=== PATIENT | male | born 1995 | race Caucasian/White ===

== ENCOUNTER 2018-12-01 16:58 | Emergency (ER) | payer BC ==
--- NOTE | 2018-12-01 17:15 | EDM.PDOC ---
ED HPI GENERAL MEDICAL PROBLEM - General Chief Complaint: Lower Extremity Injury/Pain Stated Complaint: LT FOOT INJURY Time Seen by Provider: 12/01/18 17:02 Source of Information: Reports: Patient History Limitations: Reports: No Limitations - History of Present Illness INITIAL COMMENTS - FREE TEXT/NARRATIVE: HISTORY AND PHYSICAL: History of present illness: Patient is a 22-year-old male who presents to the emergency room with complaints of left heel pain that started this morning. States he woke up with pain to his heel and difficulty flexing his toe upward to "flatten" his foot. He denies any difficulty ambulating or weightbearing, although does feel pain to the calcaneus region. He denies any injury, trauma or falls. No previous surgeries or injuries of the affected extremity. Patient denies any fever, chills, headache, change in vision, syncope or near syncope. Denies any chest pain, back pain, shortness of breath or cough. Denies any GI or symptoms. Patient has been eating and drinking appropriately. Review of systems: As per history of present illness and below otherwise all systems reviewed and negative. Past medical history: As per history of present illness and as reviewed below otherwise noncontributory. Surgical history: As per history of present illness and as reviewed below otherwise noncontributory. Social history: See social history for further information Family history: As per history of present illness and as reviewed below otherwise noncontributory. Physical exam: General: Well-developed and well-nourished 22-year-old male. Alert and oriented. Nontoxic appearing and in no acute distress. HEENT: Atraumatic, normocephalic, pupils equal and reactive bilaterally, negative for conjunctival pallor or scleral icterus, mucous membranes moist, trachea midline. No drooling or trismus noted. No meningeal signs. No hot potato voice noted. Lungs: Clear to auscultation, breath sounds equal bilaterally. Heart: S1S2, regular rate and rhythm without overt murmur Abdomen: Soft, nondistended, nontender. Skin: Intact, warm, dry. No lesions or rashes noted. Extremities: Atraumatic, moves all extremities per self without difficulty or deficits, negative for cords or calf pain. Appears to have no achilles tendon involvement. Able to point and flex the affected foot. Mild pain when palpating the left calcaneus. Strong pedal and pretibial pulse. Capillary refill less than 3 seconds. Neurovascular unremarkable. Neuro: Awake, alert, oriented. Cranial nerves II through XII unremarkable. Cerebellum unremarkable. Motor and sensory unremarkable throughout. Exam nonfocal. Notes: Patient's blood pressure is elevated will here. He declines the need for further evaluation of this. We discussed the need to follow-up with his primary care provider for reevaluation and further management. Discussed with patient the need to follow up with podiatry. He declines any crutches or cam walker shoe for comfort. Supportive care measures were reviewed and discussed. Voices understanding and is agreeable to plan of care. Denies any further questions or concerns at this time. Diagnostics: Foot x-ray Therapeutics: Crutches Prescription: None Impression: Left heel pain Plan: 1. Rest, ice, elevate the affected extremity. Please be non-weightbearing and use the crutches as directed. 2. Tylenol and/or Ibuprofen as needed for pain management. 3. Follow up with the [facility] as we discussed. Return to the ED as needed and as discussed. Definitive disposition and diagnosis as appropriate pending reevaluation and review of above. Onset: Today Left Foot Pain Score (Numeric/FACES): 3 - Related Data Allergies Allergy/AdvReac Type Severity Reaction Status Date / Time No Known Allergies Allergy Verified 12/01/18 17:07 Home Meds: Home Meds . [No Known Home Meds] 12/01/18 [History] Past Medical History - Infectious Disease History Infectious Disease History: Reports: None - Past Surgical History HEENT Surgical History: Reports: Oral Surgery Other HEENT Surgeries/Procedures: wisdom teeth removed Social & Family History - Family History Family Medical History: Noncontributory - Tobacco Use Smoking Status *Q: Current Every Day Smoker Years of Tobacco use: 11 Packs/Tins Daily: 2 - Caffeine Use Caffeine Use: Reports: None - Recreational Drug Use Recreational Drug Use: No Review of Systems - Review of Systems Review Of Systems: ROS reveals no pertinent complaints other than HPI. ED EXAM, GENERAL - Physical Exam Exam: See Below (See dictation) Course - Vital Signs Last Recorded V/S: Last Vital Signs Temp 96.5 F 12/01/18 17:07 Pulse 88 12/01/18 17:50 Resp 16 12/01/18 17:50 BP 151/100 H 12/01/18 17:50 Pulse Ox 99 12/01/18 17:50 Departure - Departure Time of Disposition: 17:39 Disposition: Home, Self-Care 01 Clinical Impression: Pain of left heel - Discharge Information Instructions: Plantar Fasciitis, Foot Pain Referrals: PCP,Unknown [Primary Care Provider] - Forms: ED Department Discharge Additional Instructions: The following information is given to patients seen in the emergency department who are being discharged to home. This information is to outline your options for follow-up care. We provide all patients seen in our emergency department with a follow-up referral. The need for follow-up, as well as the timing and circumstances, are variable depending upon the specifics of your emergency department visit. If you don't have a primary care physician on staff, we will provide you with a referral. We always advise you to contact your personal physician following an emergency department visit to inform them of the circumstance of the visit and for follow-up with them and/or the need for any referrals to a consulting specialist. The emergency department will also refer you to a specialist when appropriate. This referral assures that you have the opportunity for follow-up care with a specialist. All of these measure are taken in an effort to provide you with optimal care, which includes your follow-up. Under all circumstances we always encourage you to contact your private physician who remains a resource for coordinating your care. When calling for follow-up care, please make the office aware that this follow-up is from your recent emergency room visit. If for any reason you are refused follow-up, please contact the [facility] Emergency Department at and asked to speak to the emergency department charge nurse. [facility] [address] [place] [id number] [id number] 1. Rest, ice, elevate the affected extremity. Please be non-weightbearing and use the crutches as directed. 2. Tylenol and/or Ibuprofen as needed for pain management. 3. Follow up with the [facility] as we discussed. Return to the ED as needed and as discussed.
--- NOTE | 2018-12-01 18:03 | CR ---
Indication: Unable to flex foot Technique: Left foot 3 views. Comparison: None Findings: Bones: Alignment is normal. No fractures or bone lesions. Joint spaces: Unremarkable. Soft tissues: Unremarkable. Impression: Normal left foot radiographs. Dictated by Sebastian Alvarado MD @ Dec 01 2018 6:01PM Signed by Dr. Sebastian Alvarado @ Dec 01 2018 6:02PM
== END 2018-12-01 17:50 | disposition home or self-care (01) ==
LOC: MW.ED 16:58
DX: M79.672 Pain in left foot (principal); F17.210 Nicotine dependence, cigarettes, uncomplicated; Z98.890 Other specified postprocedural states
CPT/HCPCS: 73630-26-LT; 73630-LT; 99282; 99283-25

== ENCOUNTER 2019-12-05 18:12 | Emergency (ER) | payer BC ==
--- NOTE | 2019-12-05 19:04 | EDM.PDOC ---
ED HPI GENERAL MEDICAL PROBLEM - General Chief Complaint: Laceration Stated Complaint: LEFT HAND LACERATION Time Seen by Provider: 12/05/19 18:52 - History of Present Illness INITIAL COMMENTS - FREE TEXT/NARRATIVE: History of present illness: [] Just prior to arrival patient zeyad a bread knife across the dorsum of his left hand at shoulder to his 3 that the bread knife was not sharp enough to cut skin was correct. He was demonstrating before his brother and it did cut the skin and caused a laceration across the dorsum of the mid metacarpal section of his left hand. The patient is a little pain there and a open full-thickness laceration with minimal bleeding. He has had a tetanus shot less than 5 years. He is sure that. He has no other symptoms. Movement of the index finger makes the pain worse. Review of systems: As per history of present illness and below otherwise all systems reviewed and negative. Past medical history: As per history of present illness and as reviewed below otherwise noncontributory. Surgical history: As per history of present illness and as reviewed below otherwise noncontributory. Social history: No reported history of drug or alcohol abuse. Family history: As per history of present illness and as reviewed below otherwise noncontributory. Physical exam: Constitutional - well developed, well-nourished and in no acute distress HEENT - normocephalic, no evidence of trauma - external nose and mouth normal - no mass in neck and no JVD - mucosae moist EYES - full EOM, PERRL, no icterus - no evidence of inflammation, injection, or drainage Respiratory - no respiratory distress, equal bilateral expansion Musculoskeletal no gross deformity of long bones or joints - no tenderness, swelling or edema. Little pain in the laceration when he does resisted extension of the left index finger. The rest of the motor function is completely preserved as is range of motion and distal digits. Neurologic - Alert and oriented times four - CN II-XII grossly intact - motor sensory and coordination symmetrically normal Psychiatric - appropriate mood and affect with normal thought content Hematologic - No petechiae or purpura - mucosa appropriate color and sclera not pale - normal nail bed color and refill Integument -is a 1.5 cm laceration transversely across the dorsum of the hand at the mid metacarpal level over what would be tenderness for digits 3 and 4. There is some pain with extension of digit 2. Distal capillary refill color and warmth is intact as is sensation. No rash or evidence of trauma - normal turgor Diagnostics: [] Therapeutics: [] Impression: [] Plan: [] Definitive disposition and diagnosis as appropriate pending reevaluation and review of above. Right Hand Pain Score (Numeric/FACES): 3 - Related Data Allergies Allergy/AdvReac Type Severity Reaction Status Date / Time No Known Allergies Allergy Verified 12/05/19 18:54 Home Meds: Home Meds cephALEXin [Cephalexin] 500 mg PO BID #20 tablet 12/05/19 [Rx] cephALEXin [Keflex] 500 mg PO BID #20 capsule 12/05/19 [Rx] cephALEXin [Keflex] 500 mg PO BID #20 capsule 12/05/19 [Rx] Past Medical History Cardiovascular History: Reports: Hypertension Respiratory History: Reports: None Gastrointestinal History: Reports: None Genitourinary History: Reports: None Musculoskeletal History: Reports: None Neurological History: Reports: None Psychiatric History: Reports: None Endocrine/Metabolic History: Reports: None Hematologic History: Reports: None Immunologic History: Reports: None Oncologic (Cancer) History: Reports: None Dermatologic History: Reports: None - Infectious Disease History Infectious Disease History: Reports: None - Past Surgical History Head Surgeries/Procedures: Reports: None HEENT Surgical History: Reports: Oral Surgery Social & Family History - Family History Family Medical History: Noncontributory - Tobacco Use Smoking Status *Q: Current Every Day Smoker Years of Tobacco use: 13 Packs/Tins Daily: 2 - Caffeine Use Caffeine Use: Reports: None - Recreational Drug Use Recreational Drug Use: No ED ROS GENERAL - Review of Systems Review Of Systems: Comprehensive ROS is negative, except as noted in HPI. ED EXAM, SKIN/RASH Exam: See Below Text/Narrative:: My physical exam as in the HPI ED SKIN PROCEDURES - Laceration/Wound Repair Left Hand Distal NVT: Neuro & Vascular Intact Anesthetic Type: Local Local Anesthesia - Lidocaine (Xylocaine): 1% Plain Local Anesthetic Volume: 4cc Skin Prep: Saline Exploration/Debridement/Repair: Wound Explored, In a Bloodless Field Closed with: Sutures Lac/Wound length In cm: 1.5 Suture Size: 4-0 # of Sutures: 4 Suture Type: Nylon Tetanus Status Addressed: Yes Complications: No Complication Description: The patient had a partial laceration to the extensor pollicis longus tendon. He had pain and minimal weakness on extension of the second digit. Course - Vital Signs Text/Narrative:: I spoke with Dr. Bryan Huerta the hand surgeon in [facility] Agreed with our plan of treatment and will see the patient next week. Last Recorded V/S: Last Vital Signs Temp 98.2 F 12/05/19 18:52 Pulse 61 12/05/19 18:52 Resp 16 12/05/19 18:52 BP 146/97 H 12/05/19 18:52 Pulse Ox 99 12/05/19 18:52 - Orders/Labs/Meds Orders: Active Orders 24 hr Category Date Time Status Vaccines to be Administered [RC] PER UNIT ROUTINE Care 12/05/19 19:13 Active Meds: Medications Discontinued Medications Generic Name Dose Route Start Last Admin Trade Name Freq PRN Reason Stop Dose Admin Cephalexin 500 mg 12/05/19 19:36 Keflex PO 12/05/19 19:37 ONETIME ONE Diphtheria/Tetanus/Acell Pertussis 0.5 ml 12/05/19 19:12 12/05/19 19:34 Adacel IM 12/05/19 19:13 0.5 ml .ONCE ONE Administration Lidocaine HCl 5 ml 12/05/19 19:01 12/05/19 19:08 Xylocaine-Mpf 1% INJECT 12/05/19 19:02 5 ml ONETIME ONE Administration Departure - Departure Time of Disposition: 19:46 Disposition: Home, Self-Care 01 Condition: Good Clinical Impression: Laceration of left hand involving extensor tendon - Discharge Information Prescriptions: cephALEXin [Cephalexin] 500 mg PO BID #20 tablet cephALEXin [Keflex] 500 mg PO BID #20 capsule cephALEXin [Keflex] 500 mg PO BID #20 capsule Instructions: Sutured Wound Care Referrals: PCP,None [Primary Care Provider] - Forms: ED Department Discharge Additional Instructions: The following information is given to patients seen in the emergency department who are being discharged to home. This information is to outline your options for follow-up care. We provide all patients seen in our emergency department with a follow-up referral. The need for follow-up, as well as the timing and circumstances, are variable depending upon the specifics of your emergency department visit. If you don't have a primary care physician on staff, we will provide you with a referral. We always advise you to contact your personal physician following an emergency department visit to inform them of the circumstance of the visit and for follow-up with them and/or the need for any referrals to a consulting specialist. The emergency department will also refer you to a specialist when appropriate. This referral assures that you have the opportunity for follow-up care with a specialist. All of these measure are taken in an effort to provide you with optimal care, which includes your follow-up. Under all circumstances we always encourage you to contact your private physician who remains a resource for coordinating your care. When calling for follow-up care, please make the office aware that this follow-up is from your recent emergency room visit. If for any reason you are refused follow-up, please contact the [facility] Emergency Department at and asked to speak to the emergency department charge nurse. I spoke with Dr. Bryan Huerta who wants to see you next week. [address] [place] [address] [facility] [address] [place] [id number] [address] Sepsis Event Note (ED) - Evaluation Sepsis Screening Result: No Definite Risk - Focused Exam Vital Signs: Vital Signs Temp Pulse Resp BP Pulse Ox 12/05/19 18:52 98.2 F 61 16 146/97 H 99 - My Orders Last 24 Hours: My Active Orders 12/05/19 19:13 Vaccines to be Administered [RC] PER UNIT ROUTINE - Assessment/Plan Last 24 Hours: My Active Orders 12/05/19 19:13 Vaccines to be Administered [RC] PER UNIT ROUTINE
[2019-12-05] MEDS ORDERED: Diphtheria,Pertussis(Acell),Tetanus Vaccine 0.5 ML Syringe IM ONE (19:12)
[2019-12-05] MEDS ORDERED: Cephalexin 500 MG Cap PO ONE (19:36)
== END 2019-12-05 20:11 | disposition home or self-care (01) ==
LOC: MW.ED 18:12
DX: S66.922A Laceration of unspecified muscle, fascia and tendon at wrist and hand level, left hand, initial encounter (principal); I10 Essential (primary) hypertension; F17.210 Nicotine dependence, cigarettes, uncomplicated; Z23 Encounter for immunization; W26.0XXA Contact with knife, initial encounter
CPT/HCPCS: 12001; 90471; 90715; 99282; A9270; J2001

== ENCOUNTER 2023-04-16 00:08 | Emergency (ER) | payer BC ==
[2023-04-16] MEDS ORDERED: Metoclopramide 10 MG/2 ML SDV IM ONE (00:39)
[2023-04-16] MEDS ORDERED: Meclizine 25 MG Tab PO ONE (00:40)
[2023-04-16 01:21] LABS: CORONAVIRUS COVID-19 NAA NEGATIVE (NEGATIVE); INFLUENZA A NAA NEGATIVE (NEGATIVE); INFLUENZA B NAA NEGATIVE (NEGATIVE); RESPIRATORY SYNCYTIAL VIR NAA NEGATIVE (NEGATIVE)
== END 2023-04-16 04:49 | disposition home or self-care (01) ==
LOC: MW.ED 00:08
DX: R42 Dizziness and giddiness (principal); I10 Essential (primary) hypertension; Z20.822 Contact with and (suspected) exposure to COVID-19
CPT/HCPCS: 0241U; 70450; 96372; 99284; A9270; J2765; 99283